=== PATIENT | female | born 1965 | race Caucasian/White ===

== ENCOUNTER → 2018-11-20 | Outpatient (CLI) | payer MEDICAID ==
--- NOTE | 2018-11-20 16:57 | Diagnostic Imaging Report ---
INDICATION: Right lung mass. Serum blood glucose level at thee time of injection was 77 mg/dL. The patient was administered 11.1 mCi F18 FDG intravenously in the right antecubital location and whole-body PET imaging was performed. Noncontrast CT was also performed for attenuation correction and anatomic correlation. COMPARISON: No prior studies are available for comparison. FINDINGS: Symmetric activity throughout the brain is noted. There is physiologic activity in the soft tissues of the neck. The mass in the right upper lobe anteriorly does show hypermetabolism along the posterior aspect. SUVmax is approximately 10. Mass measures 4 cm in size. There is hypermetabolism in the right hilum reaching 4.8 suggestive of metabolic lymph node. The left hilum is unremarkable. There is a small focus of uptake involving a midthoracic vertebral body. Additional mild mild generalized uptake within the thoracic spine is seen. The abdomen does show physiologic activity in the GI and tracts. Pelvis is unremarkable. The lower extremities are unremarkable. IMPRESSION: 1. Hypermetabolic mass in the right upper lobe suspicious for a primary lung neoplasm. There appears to be a mildly hypermetabolic lymph node in the right hilum as well suspicious for a metastatic lesion. 2. Mild uptake in the thoracic spine, indeterminate. MRI of the thoracic spine would be useful for further characterization. Dictated by: Dictated on workstation # [id number]
== END ==
LOC: RAD 10:54
PROVIDERS: ATTEND Family Medicine
DX: R91.8 Other nonspecific abnormal finding of lung field (principal)